=== PATIENT | female | born 1970 | race Caucasian/White ===

== ENCOUNTER 2024-10-06 13:30 | Emergency (ER) | payer OTHER, SELFPAY ==
[2024-10-06 13:33] VITALS: BP 152/107
[2024-10-06 14:11] LABS: % Basophils 0.8 % (0-2); % Eosinophils 2.7 % (0-6); % Immature Granulocytes 0.2 % (0-0.5); % Lymphocytes 30.4 % (20.5-51.1); % Monocytes 6.5 % (1.7-9.3); % Neutrophils 59.4 % (42.2-75.2); Absolute Basophils 0.1 10^3/uL (0-0.2); Absolute Eosinophils 0.2 10^3/uL (0-0.7); Absolute Lymphocytes 2.6 10^3/uL (1.2-3.4); Absolute Monocytes 0.6 10^3/uL (0.1-0.6); Absolute Neutrophils 5.1 10^3/uL (1.4-6.5); Hematocrit 41.6 % (37.0-47.0); Hemoglobin 13.9 g/dL (12.0-16.0); Mean Corp Hgb Conc. 33.4 g/dL (33.0-37.0); Mean Corpuscular Hgb 29.3 pg (27.0-31.0); Mean Corpuscular Volume 87.6 fL (81.0-99.0); Mean Platelet Volume 9.5 fL (7.4-10.4); Nucleated Red Blood Cells % 0 %; Platelet Count 253 10^3/uL (130-400); Red Blood Cell Count 4.75 10^6/uL (4.20-5.40); White Blood Cell Count 8.6 10^3/uL (4.8-10.8)
[2024-10-06 14:25] LABS: ALT (SGPT) 23 U/L (0-35); AST (SGOT) 21 U/L (14-36); Albumin 4.4 g/dl (3.5-5.0); Alkaline Phosphatase 104 U/L (38-126); Blood Urea Nitrogen 21 mg/dl (7-17); Calcium 9.2 mg/dl (8.4-10.2); Carbon Dioxide 23 mmol/L (22-30); Chloride 109 mmol/L (98-107); Glucose 132 mg/dl (70-99); Potassium 4.1 mmol/L (3.5-5.1); Sodium 141 mmol/L (135-145); eGFR > 60.00
--- NOTE | 2024-10-06 16:00 | ED.GENMED ---
History of Present Illness
General
Chief Complaint: Swelling
Source: patient
Exam Limitations: none
Time Seen by Provider: 10/06/24 15:46
History of Present Illness
History of Present Illness:
53yoF with history of hypertension eosinophilic esophagitis presenting with her friend for evaluation of left-sided neck swelling. Patient noticed a lump above her left clavicle yesterday. The lump is painful and seems to be gradually getting
larger since yesterday. Patient is having radiating pain up her neck. She went to urgent care today thinking that it was a lymph node and was sent to the ED for a CT scan. Of note, patient had a Prevnar vaccine a few days ago in her left arm.
She has been experiencing a cough recently. She is otherwise asymptomatic and denies any fevers, URI symptoms, sore throat, weight loss.
Phy Exam
General Physical Exam
General Presentation: well appearing and no apparent distress
General age: appears stated age
General Skin: warm and dry
General Habitus: normal
General Mental: alert
ENT Exam
ENT Exam: pharynx normal, neck supple, normocephalic and other (+Tender 1cm x 1cm circular mass in supraclavicular region that appears consistent with a lymph node)
Pulmonary Exam
Pulmonary Exam: lungs clear, no respiratory distress, no rales, no crackles, no rhonchi and no wheezing
Neurological Exam
Neurological Exam: alert
Gregorio Coma Scale
Eye Opening: Spontaneous
Verbal Response: Oriented
Motor Response: Obeys Commands
GCS Total Score: 15
Skin Exam
Skin Exam: normal color and warm/dry
Psychiatric Exam
Psychiatric Exam: normal mood/affect
Scores
Heart Failure Risk
Heart Failure Risk Score: Not Applicable
Course
Orders/Labs/Results
Orders:
Orders
10/06/24 13:45
Complete Blood Count/With Diff Urgent
Comprehensive Metabolic Panel Urgent
10/06/24 15:34
CR Chest - 2 Views Urgent
Comment:
Reason For Exam: cough, lump over L clavicle
10/06/24 15:58
CT Neck With Iv Contrast Urgent
Comment:
Reason For Exam: L supraclavicular mass/swelling
10/06/24 15:59
Diphenhydramine [Benadryl] 50 mg IV NOW STA
Hydrocortisone Sod Succinate [Solu-Cortef] 200 mg IV NOW STA
Abnormal Lab Results
10/06/24
13:45
Chloride 109 H mmol/L
(98-107)
BUN 21 H mg/dl
(7-17)
Glucose 132 H mg/dl
(70-99)
10/06/24 13:45
10/06/24 13:45
Vital Signs
Initial and Last Documented VS:
Initial Vital Signs
Temp Pulse Resp BP Pulse Ox
97.9 F 84 18 152/107 98
10/06/24 13:33 10/06/24 13:33 10/06/24 13:33 10/06/24 13:33 10/06/24 13:33
Last Documented Vital Signs
Temp Pulse Resp BP Pulse Ox
97.9 F 84 18 152/107 98
10/06/24 13:33 10/06/24 13:33 10/06/24 13:33 10/06/24 13:33 10/06/24 13:33
MDM/Problems Addressed
Differential Diagnosis Includes:
53yoF here with a tender lump above her L clavicle that she noticed yesterday. Feels larger today. Sent in by urgent care. Did receive a vaccine in the L arm a few days ago. Otherwise asymptomatic without any infectious symptoms or weight loss. She
is well-appearing no acute distress. There is a small tender supraclavicular mass on exam which appears consistent with lymphadenopathy. Differential diagnosis includes but is not limited to: Lymphadenopathy, lipoma, malignancy
Initial ED plan: CBC and CMP obtained in triage which are overall unremarkable including normal white count. Will check CT neck and chest x-ray.
*Critical Care Note
Total Time (30-74mins, 75-104mins- exclusive of procedures): Not Applicable
Update Note
Update Note:
Neck CT shows moderate asymptomatic symmetric left supraclavicular and axillary lymphadenopathy. Lymphadenopathy may be infectious, inflammatory, or malignant. Suspect lymphadenopathy is reactive due to her recent vaccine on that side. Discussed
with patient that a biopsy will be needed if the lymphadenopathy does not resolve in the next 4 to 6 weeks. Patient has an appointment with her PCP scheduled for next week. ED return precautions reviewed. Patient discharged in stable condition.
ED Attending Note
-
Portions of this chart may have been created with voice recognition software.� Occasional wrong word or��sound alike� substitutions may have occurred due to the inherent limitations of voice recognition software.
Discharge Plan
Departure
Patient Disposition: Home (Routine Discharge)
Date of Disposition: 10/06/24
Time of Disposition: 18:06
Patient with high blood pressure during this ER visit?: Yes
Discharge Problem:
Lymphadenopathy
Instructions: Swollen lymph nodes in adults
Referrals:
Irais Mckeon DO [Family Provider] -
Activity Restrictions/Additional Instructions:
Please follow-up with your family doctor. You will need a biopsy if the swelling does not resolve in 4-6 weeks.
Return to the ER with any worsening symptoms including trouble breathing or swallowing.
Interventions
Interventions:
*Risk Screen - Suicide Last Done: 10/06/24 13:36
*General Assessment Last Done: 10/06/24 13:36
*Neglect/Abuse Screening Last Done: 10/06/24 13:36
ED- Cardiac Assessment Last Done: 10/06/24 16:21
ED- Pulmonary Assessment Last Done: 10/06/24 16:21
ED-Skin Assessment Last Done: 10/06/24 16:21
Discharge Date and Time
Print Language: TELUGU
[2024-10-06 16:12] VITALS: BMI 36.0
[2024-10-06] MEDS: BENADRYL 50 MG IV (16:19)
[2024-10-06] MEDS: SOLU-CORTEF 200 MG IV (16:21)
== END 2024-10-06 18:15 | disposition home or self-care (01) ==
LOC: EMR 13:30
PROVIDERS: Student in an Organized Health Care Education/Training Program; EMERGENCY PHYSICIAN Emergency Medicine; FAMILY PHYSICIAN Family Medicine
DX: R59.0 Localized enlarged lymph nodes (principal); I10 Essential (primary) hypertension; R05.9 Cough, unspecified
CPT/HCPCS: 96374; 96375; 99284; 70491; 71046; 80053; 85025; Q9967